=== PATIENT | female | born 1980 | race African-American/Black ===

== ENCOUNTER → 2018-08-05 | Outpatient (CLI) | payer MEDICAID ==
--- NOTE | 2018-08-05 14:39 | RADIOLOGY REPORT (SQ) ---
EXAM DESCRIPTION: CHEST PA/LATERAL COMPLETED DATE/TIME: 08/05/2018 2:32 pm REASON FOR STUDY: CHEST PAIN, UNSPECIFIED COMPARISON: None. EXAM PARAMETERS: NUMBER OF VIEWS: two views TECHNIQUE: Digital Frontal and Lateral radiographic views of the chest acquired. RADIATION DOSE: NA LIMITATIONS: none FINDINGS: LUNGS AND PLEURA: No opacities, masses or pneumothorax. No pleural effusion. MEDIASTINUM AND HILAR STRUCTURES: No masses or contour abnormalities. HEART AND VASCULAR STRUCTURES: Heart normal size. No evidence for failure. BONES: No acute findings. HARDWARE: None in the chest. OTHER: No other significant finding. IMPRESSION: 1. NO SIGNIFICANT RADIOGRAPHIC FINDING IN THE CHEST. TECHNICAL DOCUMENTATION: JOB ID: [id number] [employer]- All Rights Reserved Reading location - IP/workstation name: [email or web address]
--- NOTE | 2018-08-05 21:21 | EKG REPORT ---
SEVERITY:- ABNORMAL ECG - SINUS RHYTHM PROBABLE LEFT VENTRICULAR HYPERTROPHY : Confirmed by: Margo Nelson MD 05-Aug-2018 21:20:57
== END ==
LOC: OD 13:56
PROVIDERS: ATTEND Nurse Practitioner Family
DX: R07.9 Chest pain, unspecified (principal)
CPT/HCPCS: 71046; 93005; 93010

== ENCOUNTER → 2018-08-06 | Outpatient (CLI) | payer MEDICAID ==
--- NOTE | 2018-08-06 17:51 | RADIOLOGY REPORT (SQ) ---
EXAM DESCRIPTION: CT ABDOMEN COMBO COMPLETED DATE/TIME: 08/06/2018 5:32 pm REASON FOR STUDY: R74.8 ABNORMAL SERUM LIPASE LEVEL R74.8 ABNORMAL LEVELS OF OTHER SERUM ENZYMES COMPARISON: None. TECHNIQUE: Four phase CT scan limited views of the abdomen performed with and without intravenous co ntrast and with oral contrast. Contrasted imaging performed using helical scanning technique with dy namic intravenous contrast injection. Thin sliced arterial and portal venous phase post contrast renea ges acquired. Images reviewed with lung, soft tissue, and bone windows. Reconstructed coronal and s agittal MPR images reviewed. Delayed images for evaluation of the urinary system also acquired and e valuated. All images stored on PACS. All CT scanners at this facility use dose modulation, iterative reconstruction, and/or weight based d osing when appropriate to reduce radiation dose to as low as reasonably achievable (ALARA). [facility]: Dose Right [facility]: CareDose [facility]: Dose Right [facility]: Teradose 4D [facility]: hereO CONTRAST TYPE AND DOSE: contrast/concentration: Isovue 350.00 mg/ml; Total Contrast Delivered: 74.0 ml; Total Saline Delivered: 67.0 ml RENAL FUNCTION: None required. The patient is less than 50 years old. RADIATION DOSE: CT Rad equipment meets quality standard of care and radiation dose reduction techniq ues were employed. CTDIvol: 4.9 - 22.7 mGy. DLP: 715 mGy-cm. . LIMITATIONS: None. FINDINGS: NONCONTRASTED IMAGING: No focal masses in the pancreas. No abnormal calcifications in the pancreas. POSTCONTRASTED IMAGING: LOWER CHEST: No significant findings. No nodules or infiltrates. LIVER: At least 3 subdiaphragmatic low-density lesions, the largest about 3 cm, 7.5 HU precontrast, 2 2 postcontrast and 27 HU delayed imaging. No biliary dilatation. SPLEEN: No focal lesions in the visualized spleen. PANCREAS: No masses. No significant calcifications. No adjacent inflammation or peripancreatic flui d collections. Pancreatic duct not dilated. GALLBLADDER: No identified stones by CT criteria. No inflammatory changes to suggest cholecystitis. ADRENAL GLANDS: No significant masses or asymmetry. RIGHT KIDNEY AND URETER: No mass, calculi or urinary tract obstruction. LEFT KIDNEY AND URETER: No mass, calculi or urinary tract obstruction. AORTA AND VESSELS: Limited visualization without aneurysm. RETROPERITONEUM: No retroperitoneal adenopathy, hemorrhage or masses. BOWEL AND PERITONEAL CAVITY: Limited visualization. No obvious masses or inflammatory changes. ABDOMINAL WALL: No masses. No hernias. BONY STRUCTURES: No significant or acute findings in the visualized bony structures. OTHER: No other significant finding. IMPRESSION: 1. No evidence of pancreatic mass or pancreatitis. 2. Probable hepatic hemangiomas but incompletely characterized. Follow-up dedicated liver MRI is rec ommended. TECHNICAL DOCUMENTATION: JOB ID: [id number] Quality ID # [id number]: Final reports with documentation of one or more dose reduction techniques (e.g., Au tomated exposure control, adjustment of the mA and/or kV according to patient size, use of iterative reconstruction technique) 2010 [employer]- All Rights Reserved Reading location - IP/workstation name: [email or web address]
== END ==
LOC: RAD 18:57
PROVIDERS: ATTEND Nurse Practitioner Family
DX: R74.8 Abnormal levels of other serum enzymes (principal)
CPT/HCPCS: 74170

== ENCOUNTER → 2018-08-30 | Outpatient (CLI) | payer MEDICAID ==
[2018-08-30 17:18] LABS: CHOLESTEROL 229.36 mg/dL (0-200); LIPASE 1821.2 U/L (23-300); TRIGLYCERIDES 146 mg/dL (<150)
[2018-08-30 17:29] LABS: DIRECT LDL 112 mg/dL (<100)
== END ==
LOC: OD 15:52
PROVIDERS: ATTEND Physician Assistant
DX: R07.9 Chest pain, unspecified (principal); K85.90 Acute pancreatitis without necrosis or infection, unspecified
CPT/HCPCS: 36415; 80061; 83690

== ENCOUNTER → 2018-09-03 | Outpatient (CLI) | payer MEDICAID | LOC: OD 16:43 | PROVIDERS: ATTEND Internal Medicine Gastroenterology | DX: K85.90 Acute pancreatitis without necrosis or infection, unspecified (principal) | CPT/HCPCS: 36415 ==

== ENCOUNTER → 2018-09-06 | Outpatient (CLI) | payer MEDICAID ==
--- NOTE | 2018-09-06 10:03 | WOMENS IMAGING REPORT ---
EXAM DESCRIPTION: U/S ABDOMEN LIMITED COMPLETED DATE/TIME: 09/06/2018 9:45 am REASON FOR STUDY: K85.90 K85.90 ACUTE PANCREATITIS WITHOUT NECROSIS OR INFECTION, UNS COMPARISON: CT abdomen 08/06/2018 TECHNIQUE: Dynamic and static grayscale images acquired of the abdomen and recorded on PACS. Additio nal selected color Doppler and spectral images recorded. LIMITATIONS: Left upper quadrant and Midline bowel gas FINDINGS: PANCREAS: Midline pancreas unremarkable. Pancreatic tail not well seen due to left upper quadrant bowel gas LIVER: No masses. Echotexture normal. LIVER VASCULATURE: Normal directional flow of the main portal vein and hepatic veins. GALLBLADDER: No stones. Normal wall thickness. No pericholecystic fluid. ULTRASOUND-DETECTED RICHARD'S SIGN: Negative. INTRAHEPATIC DUCTS AND COMMON DUCT: CBD and intrahepatic ducts normal caliber. No filling defects. INFERIOR VENA CAVA: Normal flow. AORTA: No aneurysm. RIGHT KIDNEY: Normal size. Normal echogenicity. No solid or suspicious masses. No hydronephrosis. No calcifications. PERITONEAL AND RIGHT PLEURAL SPACE: No ascites or effusions. OTHER: No other significant findings. IMPRESSION: NORMAL RIGHT UPPER QUADRANT ULTRASOUND. TECHNICAL DOCUMENTATION: JOB ID: [id number] [employer]- All Rights Reserved Reading location - IP/workstation name: [email or web address]
== END ==
LOC: WI 09:15
PROVIDERS: ATTEND Internal Medicine Gastroenterology
DX: K85.90 Acute pancreatitis without necrosis or infection, unspecified (principal)
CPT/HCPCS: 76705

== ENCOUNTER → 2018-10-05 | Outpatient (CLI) | payer MEDICAID ==
[~2018-10-05] MED LIST: REGADENOSON INJ 0.4 MG/5 ML DISP.SYRIN IV ONE
--- NOTE | 2018-10-06 11:07 | RADIOLOGY REPORT ---
STRESS TEST REPORT PATIENT NAME: SAMIR SHAW ROOM#: DATE OF SERVICE: AGE: 37Y ORDER#: [id number] REFERRING MD: BRENNA HOLGUIN M.D. PROCEDURE PERFORMED: Rest/stress single-isotope Cardiolite SPECT imaging using Lexiscan stress and gaited SPECT imaging. INDICATIONS: Assessment of central chest pain radiated to the right lower chest. CLINICAL HISTORY: This is a 37-year-old female with no known coronary artery disease, but has cardiac risk factors of smoking. Current symptomatology includes the central chest pain radiating to the right lower lung field. REPORT The patient received IV Lexiscan 0.4 mg over 10 seconds and flushed. The resting heart rate was 91 bpm and increased to 121 bpm at end infusion. The resting blood pressure was 115/77 and increased to 124/89 at end infusion. The patient had symptoms of very mild central chest pains. Resting 12-lead EKG showed normal sinus rhythm at 94 bpm, no ST changes were seen. At end infusion, there was sinus tachycardia and ST changes were flat in V5 and V6. Myocardial perfusion imaging was performed at rest 60 minutes following the injection of 10.55 mCi of Cardiolite. Ten seconds after the IV Lexiscan injection, she was injected with 33 mCi of Cardiolite and flushed. Gated post stress tomographic imaging was performed 60 minutes after stress. FINDINGS: 1. The overall quality of the study is good. 2. The left ventricular cavity is noted to be normal in size on both the rest and stress studies. There is no evidence of abnormal transient ischemic dilatation of the left ventricle, the TID ratio was normal at 1.05. 3. SPECT images showed a moderate sized area of moderately fixed perfusion defect in the basal two-thirds of the anterior wall. There is no reversible ischemia. Gated SPECT imaging showed reduced motion in the basal anterior wall with normal motion. The left ventricular ejection fraction was calculated to be 51% and this is lower limit of normal. This needs to be confirmed with her echocardiogram ejection fraction. IMPRESSION: MYOCARDIAL PERFUSION IMAGING IS ABNORMAL. THERE IS A MODERATE SIZED AREA OF MODERATE SEVERE FIXED PERFUSION DEFECT IN THE BASAL TWO-THIRDS OF THE ANTERIOR WALL (MODERATE) WITH NO REVERSIBLE ISCHEMIA. THIS BASAL ANTERIOR WALL SHOWED NORMAL MOTION, BUT CONTRACTION IS REDUCED. OVERALL LEFT VENTRICULAR SYSTOLIC FUNCTION IS LOW NORMAL AT 51%. NO PRIOR STUDY TO COMPARE. RECOMMENDATIONS: 1. Patient to stop smoking, drinking. 2. Optimize medical therapy and if her atypical chest pain is not totally controlled by medication, consider left heart catheterization. INTERPRETING PHYSICIAN: BRENNA HOLGUIN M.D. /: [id number] TT: [id number] ID: [id number] /: [id number] TD: [id number] JOB: [id number] cc:BRENNA HOLGUIN M.D. > MTDD
== END ==
LOC: RAD 06:36
PROVIDERS: ATTEND Internal Medicine Cardiovascular Disease
DX: R07.9 Chest pain, unspecified (principal); F17.200 Nicotine dependence, unspecified, uncomplicated
CPT/HCPCS: 93017; 78452; A9500; J2785; Q9969

== ENCOUNTER → 2018-12-02 | Outpatient (CLI) | payer MEDICAID ==
[2018-12-02 11:58] LABS: ALANINE AMINOTRANSFERASE 57 U/L (9-52); ALBUMIN 4.6 g/dL (3.5-5.0); ALKALINE PHOSPHATASE 82 U/L (38-126); ASPARTATE AMINO TRANSFERASE 118 U/L (14-36); BILIRUBIN,DIRECT 0.3 mg/dL (0.0-0.4); BILIRUBIN,TOTAL 0.3 mg/dL (0.2-1.3); CHOLESTEROL 186.57 mg/dL (0-200); TOTAL PROTEIN 8.2 g/dL (6.3-8.2); TRIGLYCERIDES 172 mg/dL (<150)
[2018-12-02 12:09] LABS: DIRECT LDL 84 mg/dL (<100)
[2018-12-02 12:11] LABS: VLDL CHOLESTEROL 34.4 mg/dL (10-31)
[2018-12-02 14:34] LABS: GAMMA-GLUTAMYL TRANSFERASE 278 U/L (8-78)
== END ==
LOC: OD 09:49
PROVIDERS: ATTEND Internal Medicine Cardiovascular Disease
DX: E78.5 Hyperlipidemia, unspecified (principal); N91.2 Amenorrhea, unspecified; R94.5 Abnormal results of liver function studies; Z79.899 Other long term (current) drug therapy
CPT/HCPCS: 36415; 80061; 80076; 82977; 84703

== ENCOUNTER → 2018-12-30 | Outpatient (CLI) | payer MEDICAID ==
[2018-12-30 11:27] LABS: ALANINE AMINOTRANSFERASE 72 U/L (9-52); ALBUMIN 4.2 g/dL (3.5-5.0); ALKALINE PHOSPHATASE 97 U/L (38-126); ASPARTATE AMINO TRANSFERASE 157 U/L (14-36); BILIRUBIN,DIRECT 0.3 mg/dL (0.0-0.4); BILIRUBIN,TOTAL 0.3 mg/dL (0.2-1.3); GAMMA-GLUTAMYL TRANSFERASE 395 U/L (8-78); TOTAL PROTEIN 7.3 g/dL (6.3-8.2)
== END ==
LOC: OD 09:42
PROVIDERS: ATTEND Internal Medicine Cardiovascular Disease
DX: R94.5 Abnormal results of liver function studies (principal)
CPT/HCPCS: 36415; 80076; 82977

== ENCOUNTER → 2019-01-13 | Outpatient (CLI) | payer MEDICAID ==
[2019-01-13 12:24] LABS: ALANINE AMINOTRANSFERASE 60 U/L (9-52); ALBUMIN 4.3 g/dL (3.5-5.0); ALKALINE PHOSPHATASE 108 U/L (38-126); ASPARTATE AMINO TRANSFERASE 135 U/L (14-36); BILIRUBIN,DIRECT 0.3 mg/dL (0.0-0.4); BILIRUBIN,TOTAL 0.4 mg/dL (0.2-1.3); TOTAL PROTEIN 7.5 g/dL (6.3-8.2)
[2019-01-14 07:40] LABS: HEPATITIS A AB IGM Negative (Negative); HEPATITIS B CORE AB IGM Negative (Negative); HEPATITS B SURFACE ANTIGEN Negative (Negative)
[2019-01-14 09:21] LABS: HEPATITIS C VIRUS ANTIBODY <0.1 s/co ratio (0.0-0.9)
== END ==
LOC: OD 10:34
PROVIDERS: ATTEND Internal Medicine Gastroenterology
DX: R94.5 Abnormal results of liver function studies (principal)
CPT/HCPCS: 36415; 80074; 80076

== ENCOUNTER 2019-01-20 10:18 | Day surgery (SDC) | payer MEDICAID ==
[2019-01-20] MEDS ORDERED: PROPOFOL INJ 200 MG/20 ML VIAL IV ONE (10:43)
[2019-01-20] MEDS ORDERED: ALBUTEROL SULFATE 0.083% NEB 2.5 MG/3 ML AMPUL NEB ONE (11:36)
[2019-01-20] MEDS ORDERED: MIDAZOLAM 2 MG/2 ML INJ ONE (11:36)
[2019-01-20] MEDS ORDERED: DIPHENHYDRAMINE HCL 50 MG/ML VIAL IV PRN (12:59)
[2019-01-20] MEDS ORDERED: ONDANSETRON HCL INJ/PF 4 MG/2 ML SDV IV PRN (12:59)
[2019-01-20 14:19] VITALS: BP 129/93
--- NOTE | 2019-01-20 16:11 | EKG REPORT ---
SEVERITY:- BORDERLINE ECG - SINUS RHYTHM PROBABLE LEFT ATRIAL ABNORMALITY BORDERLINE T ABNORMALITIES, ANT-LAT LEADS : Confirmed by: Margo Nelson MD 20-Jan-2019 16:10:19
--- NOTE | 2019-01-21 13:43 | Operative Report ---
Operative Report DATE OF SURGERY: 01/20/19 Operative Report: The risks benefits and alternatives of the procedure explained to the patient in detail and informed consent is obtained.A GIF Olympus video scope was inserted into the patient's mouth and hypopharynx, the esophagus is identified intubated and insufflated ,the scope was then advanced through the esophagus stomach and duodenum, retroflexion maneuver is done, the esophagus stomach and first and second portions of the duodenum examined. PREOPERATIVE DIAGNOSIS: Epigastric pain rule out peptic ulcer disease POSTOPERATIVE DIAGNOSIS: Gastritis status post biopsy rule out Helicobacter pylori OPERATION: EGD with biopsy SURGEON: MAGNOLIA CONTRERAS ANESTHESIA: LMAC TISSUE REMOVED OR ALTERED: As noted above COMPLICATIONS: None. ESTIMATED BLOOD LOSS: None. INTRAOPERATIVE FINDINGS: As noted above PROCEDURE: Patient tolerated the procedure well. No immediate postprocedure complications are noted. Patient is discharged in good condition. Discharge date 01/20/2019. Discharge diet: Regular. Discharge activity: Regular. 2 to 3-week follow-up to discuss findings. Patient is instructed to call the office or proceed to the emergency room should there be any further problems or questions. Wait on the pathology.
== END 2019-01-20 14:05 | disposition home or self-care (01) ==
LOC: OROUT 10:18
PROVIDERS: ATTEND Internal Medicine Gastroenterology
DX: K29.50 Unspecified chronic gastritis without bleeding (principal); D64.9 Anemia, unspecified; J45.909 Unspecified asthma, uncomplicated; K76.0 Fatty (change of) liver, not elsewhere classified; F17.210 Nicotine dependence, cigarettes, uncomplicated
CPT/HCPCS: 43239; 36415; 84703; 88342 ×2; 88305 ×2; 93005; 93010; J2250; J2704; 731

== ENCOUNTER → 2019-02-16 | Outpatient (CLI) | payer MEDICAID ==
--- NOTE | 2019-02-16 13:52 | RADIOLOGY REPORT (SQ) ---
EXAM DESCRIPTION: U/S ABDOMEN COMPLETE W/DOPPLER COMPLETED DATE/TIME: 02/16/2019 11:48 am REASON FOR STUDY: ABNORMAL LFTS (R94.5) R94.5 ABNORMAL RESULTS OF LIVER FUNCTION STUDIES COMPARISON: Ultrasound dated 09/06/2018. CT dated 08/06/2018. TECHNIQUE: Dynamic and static grayscale images acquired of the abdomen and recorded on PACS. Additio nal selected color Doppler and spectral images recorded. Note: Study does not meet criteria for complete doppler/duplex scan LIMITATIONS: None. FINDINGS: PANCREAS: No masses. Visualized pancreatic duct normal caliber. LIVER: Stable homogeneous hyperechoic lesions in the left lobe, measuring 1.9 cm and 3.1 cm. Mild in creased echogenicity. LIVER VASCULATURE: Normal directional flow of the main portal vein and hepatic veins. GALLBLADDER: No stones. Normal wall thickness. No pericholecystic fluid. ULTRASOUND-DETECTED RICHARD'S SIGN: Negative. INTRAHEPATIC DUCTS AND COMMON DUCT: CBD and intrahepatic ducts normal caliber. No filling defects. INFERIOR VENA CAVA: Normal flow. AORTA: No aneurysm. RIGHT KIDNEY: Normal size. Normal echogenicity. No solid or suspicious masses. No hydronephros is. No calcifications. LEFT KIDNEY: Normal size. Normal echogenicity. No solid or suspicious masses. No hydronephrosi s. No calcifications. SPLEEN: Normal size. No solid masses. PERITONEAL AND PLEURAL SPACES: No ascites or effusions. OTHER: No other significant finding. IMPRESSION: STABLE HEPATIC HEMANGIOMAS. MILD FATTY INFILTRATION OF THE LIVER. OTHERWISE UNREMARKAB LE ABDOMINAL ULTRASOUND. TECHNICAL DOCUMENTATION: JOB ID: [id number] [employer]- All Rights Reserved Reading location - IP/workstation name: [email or web address]
== END ==
LOC: RAD 10:56
PROVIDERS: ATTEND Internal Medicine Gastroenterology
DX: R94.5 Abnormal results of liver function studies (principal)
CPT/HCPCS: 76700; 93976

== ENCOUNTER → 2019-03-04 | Outpatient (CLI) | payer MEDICAID ==
[2019-03-04 09:41] LABS: ALANINE AMINOTRANSFERASE 89 U/L (9-52); ALBUMIN 4.7 g/dL (3.5-5.0); ALKALINE PHOSPHATASE 91 U/L (38-126); ANION GAP 11 (5-19); ASPARTATE AMINO TRANSFERASE 216 U/L (14-36); BILIRUBIN,DIRECT 0.3 mg/dL (0.0-0.4); BILIRUBIN,TOTAL 0.7 mg/dL (0.2-1.3); BLOOD UREA NITROGEN 12 mg/dL (7-20); CALCIUM 9.5 mg/dL (8.4-10.2); CARBON DIOXIDE 24 mmol/L (22-30); CHLORIDE 107 mmol/L (98-107); CHOLESTEROL 228.29 mg/dL (0-200); GLUCOSE 85 mg/dL (75-110); POTASSIUM 4.4 mmol/L (3.6-5.0); SODIUM 141.7 mmol/L (137-145); TOTAL PROTEIN 8.2 g/dL (6.3-8.2); TRIGLYCERIDES 136 mg/dL (<150)
[2019-03-04 09:52] LABS: DIRECT LDL 101 mg/dL (<100)
== END ==
LOC: OD 08:08
PROVIDERS: ATTEND Physician Assistant
DX: E78.5 Hyperlipidemia, unspecified (principal); R07.9 Chest pain, unspecified; R94.5 Abnormal results of liver function studies; F10.10 Alcohol abuse, uncomplicated; Z79.899 Other long term (current) drug therapy
CPT/HCPCS: 36415; 80048; 80061; 80076; 82977

== ENCOUNTER → 2019-04-06 | Outpatient (CLI) | payer MEDICAID ==
[2019-04-07 14:50] LABS: ANTINUCLEAR ANTIBODIES Negative (Negative)
== END ==
LOC: OD 14:06
PROVIDERS: ATTEND Internal Medicine Gastroenterology
DX: R94.5 Abnormal results of liver function studies (principal)
CPT/HCPCS: 36415; 86038; 86256

== ENCOUNTER → 2019-06-13 | Outpatient (CLI) | payer MEDICAID ==
[2019-06-13 09:12] LABS: ALBUMIN 4.3 g/dL (3.5-5.0); ALKALINE PHOSPHATASE 87 U/L (38-126); ASPARTATE AMINO TRANSFERASE 101 U/L (14-36); BILIRUBIN,DIRECT 0.3 mg/dL (0.0-0.4); BILIRUBIN,TOTAL 0.6 mg/dL (0.2-1.3); CHOLESTEROL 213.22 mg/dL (0-200); TOTAL PROTEIN 8.1 g/dL (6.3-8.2); TRIGLYCERIDES 95 mg/dL (<150)
[2019-06-13 09:17] LABS: AMYLASE 118 U/L (30-110)
[2019-06-13 09:23] LABS: DIRECT LDL 116 mg/dL (<100)
== END ==
LOC: OD 07:21
PROVIDERS: ATTEND Physician Assistant
DX: E78.5 Hyperlipidemia, unspecified (principal); R94.5 Abnormal results of liver function studies; F10.10 Alcohol abuse, uncomplicated; Z79.899 Other long term (current) drug therapy
CPT/HCPCS: 36415; 80061; 80076; 82150; 82977; 83690

== ENCOUNTER → 2019-06-16 | Outpatient (CLI) | payer MEDICAID ==
--- NOTE | 2019-06-21 09:10 | RADIOLOGY REPORT (SQ) ---
EXAM DESCRIPTION: C SP 4 OR 5 VIEWS COMPLETED DATE/TIME: 06/16/2019 2:09 pm REASON FOR STUDY: CERVICALGIA M54.2 CERVICALGIA COMPARISON: None. NUMBER OF VIEWS: Five views. TECHNIQUE: AP, lateral, obliques and odontoid radiographic images acquired of the cervical spine. LIMITATIONS: None. FINDINGS: MINERALIZATION: Normal. ALIGNMENT: There is straightening of the normal lordotic curvature of the cervical spine. There is n o atlantoaxial dissociation. VERTEBRAE: The cervical vertebral body heights are preserved. There is no fracture. DISCS: The intervertebral disc spaces are preserved. There is no osteophytosis or endplate sclerosis . FORAMINA: Suboptimal oblique views this limits evaluation for foraminal stenosis. LATERAL AND POSTERIOR ELEMENTS: Intact. HARDWARE: None in the spine. SOFT TISSUES: No abnormal findings. OTHER: No other finding. IMPRESSION: No fracture or malalignment of the cervical spine. The intervertebral disc spaces are p reserved and there is no osteophytosis or endplate sclerosis. Evaluation of the foramina on the obli que views is limited due to suboptimal technique. TECHNICAL DOCUMENTATION: JOB ID: [id number] [employer]- All Rights Reserved Reading location - IP/workstation name: [email or web address]
== END ==
LOC: OD 12:48
PROVIDERS: ATTEND Nurse Practitioner Family
DX: M54.2 Cervicalgia (principal)
CPT/HCPCS: 72050

== ENCOUNTER 2020-04-09 09:01 | Emergency (ER) | payer SELFPAY ==
[2020-04-09 11:23] LABS: ABSOLUTE LYMPHOCYTES (AUTO) 0.7 10^3/uL (0.5-4.7); ABSOLUTE MONOCYTES (AUTO) 0.6 10^3/uL (0.1-1.4); ABSOLUTE NEUT (AUTO) 8.3 10^3/uL (1.7-8.2); BASOPHILS % (AUTO) 0.3 % (0-2); HEMATOCRIT 44.2 % (36.0-47.0); HEMOGLOBIN 14.9 g/dL (12.0-15.5); LYMPHOCYTES % (AUTO) 7.2 % (13-45); MEAN CORPUSCULAR HEMOGLOBIN 38.1 pg (27.0-33.4); MEAN CORPUSCULAR HGB CONC 33.8 g/dL (32.0-36.0); MONOCYTES % (AUTO) 6.4 % (3-13); PLATELET COUNT 206 10^3/uL (150-450); RED BLOOD COUNT 3.92 10^6/uL (3.72-5.28); RED CELL DISTRIBUTION WIDTH 16.8 % (11.5-14.0); SEGMENTED NEUTROPHILS % (AUTO) 86.1 % (42-78); TOTAL CELLS COUNTED % (AUTO) 100 %; WHITE BLOOD COUNT 9.7 10^3/uL (4.0-10.5)
[2020-04-09 11:40] LABS: ALBUMIN 5.3 g/dL (3.5-5.0); ALKALINE PHOSPHATASE 156 U/L (38-126); ASPARTATE AMINO TRANSFERASE 245 U/L (14-36); BILIRUBIN,DIRECT 0.3 mg/dL (0.0-0.4); BILIRUBIN,TOTAL 0.8 mg/dL (0.2-1.3); BLOOD UREA NITROGEN 34 mg/dL (7-20); CALCIUM 11.1 mg/dL (8.4-10.2); CHLORIDE 105 mmol/L (98-107); GLUCOSE 130 mg/dL (75-110); POTASSIUM 5.2 mmol/L (3.6-5.0); TOTAL PROTEIN 10.1 g/dL (6.3-8.2)
[2020-04-09 11:46] LABS: ANION GAP 18 (5-19); CARBON DIOXIDE 17 mmol/L (22-30)
[2020-04-09 11:48] LABS: ANISOCYTOSIS 1+; PLATELET COMMENT ADEQUATE; PLATELET LARGE PRESENT
[2020-04-09 11:51] LABS: MEAN CORPUSCULAR VOLUME 113 fl (80-97)
[2020-04-09] MEDS ORDERED: NORMAL SALINE 1000 ML 1,000 ML IV ONE ×3 (12:01→15:49)
[2020-04-09] MEDS ORDERED: ONDANSETRON HCL INJ/PF 4 MG/2 ML SDV IV ONE (12:39)
[2020-04-09 13:59] LABS: APPEARANCE,URINE SLIGHTLY-CLOUDY; BILIRUBIN,URINE NEGATIVE (NEGATIVE); COLOR,URINE YELLOW; GLUCOSE, URINE NEGATIVE (NEGATIVE); KETONES,URINE 80 mg/dL (NEGATIVE); LEUKOCYTE ESTERASE,URINE NEGATIVE (NEGATIVE); NITRITE,URINE NEGATIVE (NEGATIVE); PROTEIN,URINE 100 mg/dL (NEGATIVE); URINE SPECIFIC GRAVITY 1.027
[2020-04-09] MEDS ORDERED: DIPHENHYDRAMINE HCL 50 MG/ML VIAL IV ONE (14:28)
[2020-04-09] MEDS ORDERED: PROCHLORPERAZINE EDISYLATE INJ 10 MG/2 ML VIAL IV ONE (14:28)
--- NOTE | 2020-04-09 14:30 | ER Document Report ---
ED General - General Chief Complaint: Nausea/Vomiting Stated Complaint: VOMITING,SHORT OF BREATH,SORE THROAT Time Seen by Provider: 04/09/20 13:43 Primary Care Provider: BREANN HOLLEY NP [Primary Care Provider] - Follow up as needed Mode of Arrival: Ambulatory Information source: Patient Notes: Patient reports nausea vomiting for the past 3 days. Patient states that she has had upper abdominal pain and lower midsternal chest discomfort after the vomiting. Patient denies any cough or cold symptoms. Patient also complains of sore throat. Patient denies any fever. TRAVEL OUTSIDE OF THE [place] IN LAST 30 DAYS: No - HPI Onset: Other - 3 days Onset/Duration: Worse Quality of pain: Achy Pain Level: 5 Associated symptoms: Chest pain, Nausea, Vomiting, Sore throat. denies: Nonproductive cough, Productive cough, Diarrhea, Fever Exacerbated by: Denies Relieved by: Denies Similar symptoms previously: No Recently seen / treated by doctor: No - Related Data Allergies/Adverse Reactions: duloxetine [From Cymbalta] Allergy (Verified 01/20/19 10:41) phenazopyridine [From Pyridium] Allergy (Verified 01/20/19 10:41) stomach pain, nausea vomiting Home Medications: Nyphedapine, Lunesta, Atorvastatin Past Medical History - General Information source: Patient - Social History Smoking Status: Former Smoker Frequency of alcohol use: None Drug Abuse: None Occupation: [employer] Family History: Reviewed & Not Pertinent - Medical History Medical History: Other - Anemia - Past Medical History Cardiac Medical History: Reports: Hx Hypertension, Other - Cardiomyopathy Pulmonary Medical History: Reports: Hx Asthma Neurological Medical History: Reports: Hx Migraine. Denies: Hx Cerebrovascular Accident, Hx Seizures GI Medical History: Reports: Other - Fatty liver Musculoskeletal Medical History: Denies Hx Arthritis Psychiatric Medical History: Reports: Hx Anxiety, Hx Depression Past Surgical History: Reports: Hx Tubal Ligation - Immunizations Hx Diphtheria, Pertussis, Tetanus Vaccination: Yes Hx Pneumococcal Vaccination: 08/24/17 Review of Systems - Review of Systems Constitutional: No symptoms reported. denies: Fever EENT: Throat pain Cardiovascular: Chest pain Respiratory: No symptoms reported. denies: Cough, Short of breath Gastrointestinal: Abdominal pain, Nausea, Vomiting. denies: Diarrhea Genitourinary: No symptoms reported. denies: Dysuria Female Genitourinary: No symptoms reported. denies: Vaginal discharge, Vaginal bleeding Musculoskeletal: No symptoms reported Skin: No symptoms reported Hematologic/Lymphatic: No symptoms reported Neurological/Psychological: No symptoms reported Physical Exam - Vital signs Vitals: Resp Pulse Ox 21 H 100 04/09/20 09:23 04/09/20 09:23 - General General appearance: Appears well, Alert In distress: None Notes: Patient continually spitting saliva into the bag, no retching observed - HEENT Head: Normocephalic, Atraumatic Eyes: Normal Conjunctiva: Normal - Respiratory Respiratory status: No respiratory distress Chest status: Tender Breath sounds: Normal Chest palpation: Tender - Lower midsternal area - Cardiovascular Rhythm: Regular Heart sounds: S1 appreciated, S2 appreciated - Abdominal Inspection: Normal Distension: No distension Bowel sounds: Normal Tenderness: Tender - Epigastric Organomegaly: No organomegaly - Back Back: Normal, Nontender. No: CVA tenderness - Extremities General upper extremity: Normal inspection, Nontender, Normal strength General lower extremity: Normal inspection, Nontender, Normal strength - Neurological Neuro grossly intact: Yes Cognition: Normal Lindsey Coma Scale Eye Opening: Spontaneous Lindsey Coma Scale Verbal: Oriented Lindsey Coma Scale Motor: Obeys Commands Parveen Coma Scale Total: 15 - Psychological Associated symptoms: Normal affect, Normal mood - Skin Skin Temperature: Warm Skin Moisture: Dry Skin Color: Normal Course - Re-evaluation Re-evalutation: 04/09/20 16:41 Patient's nausea vomiting have resolved at this time. Patient complains of continued sore throat symptoms. Will provide patient with GI cocktail at this time. Patient does have elevated lipase worrisome for pancreatitis. Review of patient's records demonstrates she has had pancreatitis in the past although when confronted with this information, patient denies any history of pancre atitis. Patient does have dyslipidemia and does usually take cholesterol medication. 04/09/20 16:[address] Vyas who recommends adding on CT imaging to further evaluate patient's elevated lipase test. 04/09/20 17:53 Patient with hepatic steatosis noted on CT scan, no evidence for acute pancreatitis. Patient's abdominal pain symptoms have resolved although she does complain of continued sore throat symptoms. Patient able to manage oral secretions. Presentation of chest pain in an otherwise well appearing patient. Low clinical suspicion for ACS given clinical history, exam, EKG without ST elevations or depressions, and negative initial troponin. HEART score less than or equal to 3. PE also seems unlikely given clinical history, absence of tachycardia or dyspnea. CXR without evidence of pneumothorax or pneumonia. No widened mediastinum. Chest pain in a patient without evidence of cardiac or other serious etiology on workup today. I discussed with patient that, based on their age, risk factors and emergency department testing today, the likelihood that their symptoms are related to a heart attack is very low. The patient demonstrates decision making capacity and has verbalized an understanding of these risks to me. Based on this, the patient has chosen to follow-up as an outpatient. Usual chest pain return precautions reviewed. The patient states understanding and agreement with this plan. - Vital Signs Vital signs: Temp Pulse Resp BP Pulse Ox 98.0 F 14 159/107 H 100 04/09/20 18:43 04/09/20 18:01 04/09/20 18:01 04/09/20 18:01 - Laboratory Result Diagrams: 04/09/20 11:05 04/09/20 11:05 Laboratory results interpreted by me: 04/09/20 04/09/20 04/09/20 11:05 11:05 11:05 MCV 113 H MCH 38.1 H RDW 16.8 H Lymph % (Auto) 7.2 L Absolute Neuts (auto) 8.3 H Seg Neutrophils % 86.1 H Potassium 5.2 H Carbon Dioxide 17 L BUN 34 H Est GFR (MDRD) Non-Af 53 L Glucose 130 H Calcium 11.1 H AST 245 H ALT 77 H Alkaline Phosphatase 156 H Total Protein 10.1 H Albumin 5.3 H Lipase 910.3 H Urine Protein Urine Ketones Urine Blood Urine Urobilinogen 04/09/20 13:45 MCV MCH RDW Lymph % (Auto) Absolute Neuts (auto) Seg Neutrophils % Potassium Carbon Dioxide BUN Est GFR (MDRD) Non-Af Glucose Calcium AST ALT Alkaline Phosphatase Total Protein Albumin Lipase Urine Protein 100 H Urine Ketones 80 H Urine Blood SMALL H Urine Urobilinogen 2.0 H 04/09/20 17:53 Labs- All tests 24 hr 04/09/20 04/09/20 04/09/20 09:23 11:05 11:05 WBC 9.7 RBC 3.92 Hgb 14.9 Hct 44.2 MCV 113 H MCH 38.1 H MCHC 33.8 RDW 16.8 H Plt Count 206 Lymph % (Auto) 7.2 L Stanton % (Auto) 6.4 Eos % (Auto) 0.0 Baso % (Auto) 0.3 Absolute Neuts (auto) 8.3 H Absolute Lymphs (auto) 0.7 Absolute Monos (auto) 0.6 Absolute Eos (auto) 0.0 Absolute Basos (auto) 0.0 Seg Neutrophils % 86.1 H Large Platelets PRESENT Platelet Comment ADEQUATE Anisocytosis 1+ Macrocytosis 3+ Sodium 140.3 Potassium 5.2 H Chloride 105 Carbon Dioxide 17 L Anion Gap 18 BUN 34 H Creatinine 1.14 Est GFR ( Amer) > 60 Est GFR (MDRD) Non-Af 53 L Glucose 130 H Calcium 11.1 H Total Bilirubin 0.8 Direct Bilirubin 0.3 Neonat Total Bilirubin Not Reportable Neonat Direct Bilirubin Not Reportable Neonat Indirect Bili Not Reportable AST 245 H ALT 77 H Alkaline Phosphatase 156 H Troponin I Total Protein 10.1 H Albumin 5.3 H Lipase Serum HCG, Qual Urine Color Urine Appearance Urine pH Ur Specific Singer Urine Protein Urine Glucose (UA) Urine Ketones Urine Blood Urine Nitrite Urine Bilirubin Urine Urobilinogen Ur Leukocyte Esterase Urine WBC (Auto) Urine RBC (Auto) U Hyaline Cast (Auto) Urine Bacteria (Auto) Squamous Epi Cells Auto Urine Mucus (Auto) Urine Ascorbic Acid Urine Opiates Screen Urine Methadone Screen Ur Barbiturates Screen Ur Phencyclidine Scrn Ur Amphetamines Screen U Benzodiazepines Scrn Urine Cocaine Screen U Marijuana (THC) Screen Monotest Group A Strep Rapid NEGATIVE 04/09/20 04/09/20 04/09/20 11:05 11:05 12:40 WBC RBC Hgb Hct MCV MCH MCHC RDW Plt Count Lymph % (Auto) Stanton % (Auto) Eos % (Auto) Baso % (Auto) Absolute Neuts (auto) Absolute Lymphs (auto) Absolute Monos (auto) Absolute Eos (auto) Absolute Basos (auto) Seg Neutrophils % Large Platelets Platelet Comment Anisocytosis Macrocytosis Sodium Potassium Chloride Carbon Dioxide Anion Gap BUN Creatinine Est GFR ( Amer) Est GFR (MDRD) Non-Af Glucose Calcium Total Bilirubin Direct Bilirubin Neonat Total Bilirubin Neonat Direct Bilirubin Neonat Indirect Bili AST ALT Alkaline Phosphatase Troponin I < 0.012 Total Protein Albumin Lipase 910.3 H Serum HCG, Qual NEGATIVE Urine Color Urine Appearance Urine pH Ur Specific Singer Urine Protein Urine Glucose (UA) Urine Ketones Urine Blood Urine Nitrite Urine Bilirubin Urine Urobilinogen Ur Leukocyte Esterase Urine WBC (Auto) Urine RBC (Auto) U Hyaline Cast (Auto) Urine Bacteria (Auto) Squamous Epi Cells Auto Urine Mucus (Auto) Urine Ascorbic Acid Urine Opiates Screen Urine Methadone Screen Ur Barbiturates Screen Ur Phencyclidine Scrn Ur Amphetamines Screen U Benzodiazepines Scrn Urine Cocaine Screen U Marijuana (THC) Screen Monotest Group A Strep Rapid 04/09/20 04/09/20 04/09/20 12:40 13:45 13:45 WBC RBC Hgb Hct MCV MCH MCHC RDW Plt Count Lymph % (Auto) Stanton % (Auto) Eos % (Auto) Baso % (Auto) Absolute Neuts (auto) Absolute Lymphs (auto) Absolute Monos (auto) Absolute Eos (auto) Absolute Basos (auto) Seg Neutrophils % Large Platelets Platelet Comment Anisocytosis Macrocytosis Sodium Potassium Chloride Carbon Dioxide Anion Gap BUN Creatinine Est GFR ( Amer) Est GFR (MDRD) Non-Af Glucose Calcium Total Bilirubin Direct Bilirubin Neonat Total Bilirubin Neonat Direct Bilirubin Neonat Indirect Bili AST ALT Alkaline Phosphatase Troponin I Total Protein Albumin Lipase Serum HCG, Qual Urine Color YELLOW Urine Appearance SLIGHTLY-CLOUDY Urine pH 6.0 Ur Specific Singer 1.027 Urine Protein 100 H Urine Glucose (UA) NEGATIVE Urine Ketones 80 H Urine Blood SMALL H Urine Nitrite NEGATIVE Urine Bilirubin NEGATIVE Urine Urobilinogen 2.0 H Ur Leukocyte Esterase NEGATIVE Urine WBC (Auto) 2 Urine RBC (Auto) 2 U Hyaline Cast (Auto) 5 Urine Bacteria (Auto) TRACE Squamous Epi Cells Auto 2 Urine Mucus (Auto) MANY Urine Ascorbic Acid NEGATIVE Urine Opiates Screen NEGATIVE Urine Methadone Screen NEGATIVE Ur Barbiturates Screen NEGATIVE Ur Phencyclidine Scrn NEGATIVE Ur Amphetamines Screen NEGATIVE U Benzodiazepines Scrn NEGATIVE Urine Cocaine Screen NEGATIVE U Marijuana (THC) Screen NEGATIVE Monotest NEGATIVE Group A Strep Rapid - Diagnostic Test Radiology reviewed: Reports reviewed Discharge - Discharge Clinical Impression: Dehydration, Elevated lipase, Sore throat, Encounter for screening laboratory testing for COVID-19 virus Nausea & vomiting Qualifiers: Vomiting type: unspecified Vomiting Intractability: non-intractable Qualified Code(s): R11.2 - Nausea with vomiting, unspecified Chest pain Qualifiers: Chest pain type: unspecified Qualified Code(s): R07.9 - Chest pain, unspecified Abdominal pain Qualifiers: Abdominal location: epigastric Qualified Code(s): R10.13 - Epigastric pain Condition: Stable Disposition: HOME, SELF-CARE Instructions: COVID-19 Guidance for Persons Under Investigation, Abdominal Pain ([facility]), Antinausea Medication ([facility]), Chest Pain of Unclear Cause ([facility]), Intravenous (IV) Fluids ([facility]), Low-Fat Diet ([facility]), Sore Throat ([facility]), Vomiting ([facility]) Additional Instructions: Return immediately for any new or worsening symptoms Followup with your primary care provider, call tomorrow to make a followup appointment Stay on a clear liquid diet and gradually advance diet as tolerated Throat culture is pending, we will call if you need any different treatment Prescriptions: Hydrocodone/Acetaminophen [Somers 5-325 mg Tablet] 1 tab PO Q6 PRN #15 tablet PRN Reason: Ondansetron [Zofran Odt 4 mg Tablet] 1 tab PO Q6H #15 tab.rapdis Forms: Return to Work Referrals: BREANN HOLLEY NP [Primary Care Provider] - Follow up as needed
--- NOTE | 2020-04-09 15:28 | RADIOLOGY REPORT (SQ) ---
EXAM DESCRIPTION: CHEST SINGLE VIEW IMAGES COMPLETED DATE/TIME: 04/09/2020 3:18 pm REASON FOR STUDY: cp COMPARISON: 08/05/2018 EXAM PARAMETERS: NUMBER OF VIEWS: One view. TECHNIQUE: Single frontal radiographic view of the chest acquired. RADIATION DOSE: NA LIMITATIONS: None. FINDINGS: LUNGS AND PLEURA: No opacities, masses or pneumothorax. No pleural effusion. MEDIASTINUM AND HILAR STRUCTURES: No masses. Contour normal. HEART AND VASCULAR STRUCTURES: Heart normal in size. Normal vasculature. BONES: No acute findings. HARDWARE: None in the chest. OTHER: No other significant finding. IMPRESSION: NO ACUTE RADIOGRAPHIC FINDING IN THE CHEST. TECHNICAL DOCUMENTATION: JOB ID: [id number] 2010 [employer]- All Rights Reserved Reading location - IP/workstation name: [email or web address]
[2020-04-09 15:39] LABS: URINE AMPHETAMINES SCREEN NEGATIVE; URINE BARBITURATES SCREEN NEGATIVE; URINE BENZODIAZEPINES SCREEN NEGATIVE; URINE COCAINE SCREEN NEGATIVE; URINE MARIJUANA (THC) SCREEN NEGATIVE; URINE METHADONE SCREEN NEGATIVE; URINE PHENCYCLIDINE SCREEN NEGATIVE
--- NOTE | 2020-04-09 16:00 | RADIOLOGY REPORT (SQ) ---
EXAM DESCRIPTION: U/S ABDOMEN LIMITED W/O DOP IMAGES COMPLETED DATE/TIME: 04/09/2020 3:44 pm REASON FOR STUDY: upper abd pain, n/v COMPARISON: Prior ultrasound dated 02/16/[address] dated 08/06/2018 TECHNIQUE: Dynamic and static grayscale images acquired of the abdomen and recorded on PACS. Additio nal selected color Doppler and spectral images recorded. LIMITATIONS: None. FINDINGS: PANCREAS: No masses. Visualized pancreatic duct normal caliber. LIVER: The hepatic lesions previously identified on CT and ultrasound not apparent on today's exam du e to overlying bowel gas obscuring portions of the liver. LIVER VASCULATURE: Normal directional flow of the main portal vein and hepatic veins. GALLBLADDER: No stones. Normal wall thickness. No pericholecystic fluid. ULTRASOUND-DETECTED RICHARD'S SIGN: Negative. INTRAHEPATIC DUCTS AND COMMON DUCT: CBD and intrahepatic ducts normal caliber. No filling defects. AORTA: No aneurysm. RIGHT KIDNEY: Normal size. Normal echogenicity. No solid or suspicious masses. No hydronephrosis. No calcifications. PERITONEAL AND RIGHT PLEURAL SPACE: No ascites or effusions. OTHER: No other significant findings. IMPRESSION: No acute findings. Hepatic lesions previously documented are not apparent on today's st udy due to overlying bowel gas. TECHNICAL DOCUMENTATION: JOB ID: [id number] 2010 [employer]- All Rights Reserved Reading location - IP/workstation name: [email or web address]
[2020-04-09] MEDS ORDERED: LIDOCAINE 2% VISCOUS SOLN 15 ML UDCUP PO ONE (16:41)
[2020-04-09] MEDS ORDERED: MAG HYDROX/AL HYDROX/SIMETH SUSP 30 ML UDCUP PO ONE (16:41)
--- NOTE | 2020-04-09 17:33 | RADIOLOGY REPORT (SQ) ---
EXAM DESCRIPTION: CT ABD/PELVIS WITH IV ONLY IMAGES COMPLETED DATE/TIME: 04/09/2020 4:16 pm REASON FOR STUDY: upper abd pain, elevated lipase. Patient denies complaints. COMPARISON: 08/06/2018 TECHNIQUE: CT scan of the abdomen and pelvis performed using helical scanning technique with dynamic intravenous contrast injection. No oral contrast. Images reviewed with lung, soft tissue, and bone windows. Reconstructed coronal and sagittal MPR images reviewed. Delayed images for evaluation of the urinary system also acquired. All images stored on PACS. All CT scanners at this facility use dose modulation, iterative reconstruction, and/or weight based d osing when appropriate to reduce radiation dose to as low as reasonably achievable (ALARA). [facility]: Dose Right [facility]: CareDose [facility]: Dose Right [facility]: Teradose 4D [facility]: [employer] CONTRAST TYPE AND DOSE: contrast/concentration: Isovue 350.00 mmol/ml; Total Contrast Delivered: 70. 0 ml; Total Saline Delivered: 65.0 ml RENAL FUNCTION: GFR > 60. RADIATION DOSE: CT Rad equipment meets quality standard of care and radiation dose reduction techniq ues were employed. CTDIvol: 4.8 - 5.3 mGy. DLP: 557 mGy-cm.. LIMITATIONS: None. FINDINGS: LOWER CHEST: No significant findings. No nodules or infiltrates. LIVER: The liver has normal size and contour. There is severe diffuse hepatic steatosis. No focal h epatic mass. Hepatic and portal veins are patent. No biliary ductal dilation. SPLEEN: Normal size. No focal lesions. PANCREAS: No masses. No significant calcifications. No adjacent inflammation or peripancreatic fluid collections. Pancreatic duct not dilated. GALLBLADDER: No identified stones by CT criteria. No inflammatory changes to suggest cholecystitis. ADRENAL GLANDS: No significant masses or asymmetry. RIGHT KIDNEY AND URETER: No solid masses. No significant calcifications. No hydronephrosis or hyd roureter. LEFT KIDNEY AND URETER: No solid masses. No significant calcifications. No hydronephrosis or hydr oureter. AORTA AND VESSELS: No aneurysm. No dissection. Renal arteries, SMA, celiac without stenosis. RETROPERITONEUM: No retroperitoneal adenopathy, hemorrhage or masses. BOWEL AND PERITONEAL CAVITY: No masses or inflammatory changes. No free fluid or peritoneal masses. APPENDIX: Normal. PELVIS: Uterus and ovaries have normal size. Urinary bladder has normal contour. There are multiple calcified pelvic phleboliths. No adnexal mass. ABDOMINAL WALL: No masses. No hernias. BONES: No significant or acute findings. OTHER: No other significant finding. IMPRESSION: 1. Severe hepatic steatosis. 2. No CT evidence of acute pancreatitis. TECHNICAL DOCUMENTATION: JOB ID: [id number] Quality ID # [id number]: Final reports with documentation of one or more dose reduction techniques (e.g., Au tomated exposure control, adjustment of the mA and/or kV according to patient size, use of iterative reconstruction technique) 2010 [email or web address]- All Rights Reserved Reading location - IP/workstation name: [email or web address]
[2020-04-09 18:35] VITALS: BP 159/107
--- NOTE | 2020-04-09 21:25 | EKG REPORT ---
SEVERITY:- ABNORMAL ECG - SINUS RHYTHM CONSIDER LEFT VENTRICULAR HYPERTROPHY : Confirmed by: Nathen Pereira 09-Apr-2020 21:24:49
[2020-04-10 12:11] LABS: PATH REVIEW PATHOLOGIST REVIEWED
== END 2020-04-09 18:47 | disposition home or self-care (01) ==
LOC: ER 09:01
DX: R11.2 Nausea with vomiting, unspecified (principal); E86.0 Dehydration; J02.9 Acute pharyngitis, unspecified; R07.9 Chest pain, unspecified; R10.13 Epigastric pain; R10.816 Epigastric abdominal tenderness; R79.89 Other specified abnormal findings of blood chemistry; E78.5 Hyperlipidemia, unspecified; K76.0 Fatty (change of) liver, not elsewhere classified; I10 Essential (primary) hypertension; Z98.51 Tubal ligation status; Z79.899 Other long term (current) drug therapy; Z88.8 Allergy status to other drugs, medicaments and biological substances; Z20.828 Contact with and (suspected) exposure to other viral communicable diseases
CPT/HCPCS: 93005; 99285; 96361; 96374; 96375; 36415; 87070; 87880; 83690; 84703; 85025; 87635; 86308; 80053; 81001; 84484; 80307; 71045; 76705; 74177; 93010; J1200; J3490; J0780; J2405; J7030; C9803